=== PATIENT | female | born 1960 | race Hispanic/Latino ===

== ENCOUNTER 2022-11-12 10:52 | Outpatient (RCR) | payer OTHER | END 2022-11-17 | LOC: PT 10:52 | PROVIDERS: ATTEND Family Medicine | DX: R27.9 Unspecified lack of coordination (principal); Z91.81 History of falling ==

== ENCOUNTER 2022-11-27 08:57 | Outpatient (RCR) | payer OTHER | END 2022-12-15 | LOC: PT 08:57 | PROVIDERS: ATTEND Family Medicine | DX: M62.81 Muscle weakness (generalized) (principal); R26.81 Unsteadiness on feet; Z95.1 Presence of aortocoronary bypass graft ==

== ENCOUNTER → 2024-02-10 | Outpatient (REF) | payer OTHER | LOC: US 09:45 | PROVIDERS: ATTEND Nurse Practitioner | DX: R10.10 Upper abdominal pain, unspecified (principal); R10.30 Lower abdominal pain, unspecified | CPT/HCPCS: 76700; 76856 ==

== ENCOUNTER → 2024-05-01 | Day surgery (SDC) | payer OTHER ==
[~2024-05-01] MED LIST: AMIODARONE HCL100 MG PO; ASPIRIN81 MG PO; ATORVASTATIN CA20 MG PO; BASAGLAR K100 UNIT/1 SQ; CLOPIDOGREL75 MG PO; COLACE100 MG/10 PO; DEXMEDETOMIDINE HCL 200 MCG/2 ML VIAL ONE; DICYCLOMINE HCL20 MG PO; FENTANYL CITRATE/PF 100MCG/2 ML INJ ONE; FUROSEMIDE40 MG PO; JANUVIA50 MG PO; JARDIANCE25 MG PO; LIDOCAINE HCL 2% LOCAL INJ 5 ML SDV VIAL INJ ONE; LISINOPRIL2.5 MG PO; METOPROLOL SUCC25 MG PO; ONDANSETRON ODT4 MG SL; PROPOFOL IV EMULSION 10 MG/ML 50 ML VIAL IV ONE
[2024-05-01 12:31] LABS: BASOPHILS # (AUTO) 0.1 (0.0-0.1); BASOPHILS % 0.4 % (0.0-1.0); EOSINOPHILS # (AUTO) 0.1 (0.0-0.4); EOSINOPHILS % 0.5 % (0.0-6.0); HEMATOCRIT 44.1 % (34.2-44.1); HEMOGLOBIN 13.4 g/dL (12.0-16.0); LYMPHOCYTES # (AUTO) 2.3 (1.0-3.2); LYMPHOCYTES % 17.5 % (18.0-39.1); MEAN CORPUSCULAR HEMOGLOBIN 27.5 pg (28-32); MEAN CORPUSCULAR HGB CONC 30.4 g/dL (31-35); MEAN CORPUSCULAR VOLUME 90.4 fL (81-99); MONOCYTES # (AUTO) 0.7 (0.2-0.8); MONOCYTES % 5.2 % (4.4-11.3); NEUTROPHILS % 76.1 % (38.7-80.0); PLATELET COUNT 304 x10e3/uL (140-360); RED BLOOD COUNT 4.88 x10e6/uL (3.6-5.1); RED CELL DISTRIBUTION WIDTH 15.5 % (11.7-14.4); WHITE BLOOD COUNT 13.17 x10e3/uL (4.8-10.8)
[2024-05-01] MEDS: LACTATED RINGER'S 1,000 ML ONE (13:47)
[2024-05-01 16:45] VITALS: BP 144/70; PULSE 79; RESP 16; O2SAT 98
[2024-05-01 16:51] LABS: WBC,FECAL (FECAL LACTOFERRIN) POSITIVE (NEGATIVE)
== END | disposition home or self-care (01) ==
LOC: OR 11:28
PROVIDERS: ATTEND Internal Medicine Gastroenterology
DX: K29.70 Gastritis, unspecified, without bleeding (principal); K29.50 Unspecified chronic gastritis without bleeding; B96.81 Helicobacter pylori [H. pylori] as the cause of diseases classified elsewhere; K25.9 Gastric ulcer, unspecified as acute or chronic, without hemorrhage or perforation; K26.9 Duodenal ulcer, unspecified as acute or chronic, without hemorrhage or perforation; K63.3 Ulcer of intestine; K44.9 Diaphragmatic hernia without obstruction or gangrene; K52.9 Noninfective gastroenteritis and colitis, unspecified; D12.4 Benign neoplasm of descending colon; D12.5 Benign neoplasm of sigmoid colon; K21.00 Gastro-esophageal reflux disease with esophagitis, without bleeding; K59.00 Constipation, unspecified; K64.8 Other hemorrhoids; I11.0 Hypertensive heart disease with heart failure; I50.9 Heart failure, unspecified; I25.10 Atherosclerotic heart disease of native coronary artery without angina pectoris; I25.2 Old myocardial infarction; E78.5 Hyperlipidemia, unspecified; E11.9 Type 2 diabetes mellitus without complications; I25.810 Atherosclerosis of coronary artery bypass graft(s) without angina pectoris; Z79.4 Long term (current) use of insulin; Z79.84 Long term (current) use of oral hypoglycemic drugs; Z79.02 Long term (current) use of antithrombotics/antiplatelets; Z79.82 Long term (current) use of aspirin; Z79.899 Other long term (current) drug therapy; Z95.1 Presence of aortocoronary bypass graft
CPT/HCPCS: 36415; 43239; 45380; 45385; 83630; 83993; 85025; 87045; 87177; 87324; 87328; 87449; J2001; J2470; J2704; J3010; J7121

== ENCOUNTER 2024-05-05 15:48 | Emergency (ER) | payer OTHER ==
[~2024-05-05] VITALS: Ht 160 cm; Wt 64.0 kg
[~2024-05-05 15:48] MED LIST changes: -DEXMEDETOMIDINE HCL 200 MCG/2 ML VIAL ONE; -DICYCLOMINE HCL20 MG PO; -FENTANYL CITRATE/PF 100MCG/2 ML INJ ONE; -LIDOCAINE HCL 2% LOCAL INJ 5 ML SDV VIAL INJ ONE; -ONDANSETRON ODT4 MG SL; -PROPOFOL IV EMULSION 10 MG/ML 50 ML VIAL IV ONE
[2024-05-05 16:53] VITALS: TEMP 98.6
[2024-05-05 17:17] LABS: BASOPHILS # (AUTO) 0.1 (0.0-0.1); BASOPHILS % 0.6 % (0.0-1.0); EOSINOPHILS # (AUTO) 0.2 (0.0-0.4); EOSINOPHILS % 1.5 % (0.0-6.0); HEMATOCRIT 38.8 % (34.2-44.1); HEMOGLOBIN 11.9 g/dL (12.0-16.0); LYMPHOCYTES # (AUTO) 2.9 (1.0-3.2); LYMPHOCYTES % 21.2 % (18.0-39.1); MEAN CORPUSCULAR HEMOGLOBIN 27.4 pg (28-32); MEAN CORPUSCULAR HGB CONC 30.7 g/dL (31-35); MEAN CORPUSCULAR VOLUME 89.4 fL (81-99); MONOCYTES # (AUTO) 0.9 (0.2-0.8); MONOCYTES % 6.6 % (4.4-11.3); NEUTROPHILS # (AUTO) 9.6 (2.1-6.9); NEUTROPHILS % 69.8 % (38.7-80.0); PLATELET COUNT 344 x10e3/uL (140-360); RED BLOOD COUNT 4.34 x10e6/uL (3.6-5.1); RED CELL DISTRIBUTION WIDTH 15.5 % (11.7-14.4); WHITE BLOOD COUNT 13.67 x10e3/uL (4.8-10.8)
[2024-05-05 17:38] LABS: ALBUMIN 3.9 g/dL (3.5-5.0); BILIRUBIN,TOTAL 0.3 mg/dL (0.2-1.2); CALCIUM 9.4 mg/dL (8.4-10.2); CREATININE, SERUM 1.03 mg/dL (0.57-1.11)
[2024-05-05 18:05] LABS: BILIRUBIN,URINE NEGATIVE (NEGATIVE); CLARITY,URINE SL CLOUDY (CLEAR); COLOR,URINE YELLOW (YELLOW); GLUCOSE, URINE 500 (NEGATIVE); KETONES,URINE NEGATIVE (NEGATIVE); LEUKOCYTE ESTERASE ,URINE NEGATIVE (NEGATIVE); NITRITE,URINE NEGATIVE (NEGATIVE); PH,URINE 5.5 (5 - 7); PROTEIN,URINE DIPSTICK NEGATIVE (NEGATIVE); URINE UROBILINOGEN 0.2 mg/dL (0.2 - 1)
[2024-05-05 18:24] LABS: BACTERIA,URINE RARE /HPF; EPITHELIAL CELLS,URINE RARE /LPF; RBC,URINE 0-5 /HPF (0-5); WBC,URINE (MAN) 0-5 /HPF (0-5)
[2024-05-05] MEDS: ONDANSETRON HCL INJ 2MG/ML 2ML 2 MG/ML VIAL IV STA (19:17)
[2024-05-05] MEDS: SODIUM CHLORIDE FLUSH 10 ML SYR IV PRN (19:18)
[2024-05-05 19:45] VITALS: PULSE 68; RESP 18; O2SAT 100
[2024-05-05] MEDS ORDERED: ONDANSETRON ODT4 MG SL (20:02)
[2024-05-05] MEDS ORDERED: DICYCLOMINE HCL20 MG PO (20:02)
== END 2024-05-05 20:15 | disposition home or self-care (01) ==
LOC: ER 18:30
DX: R11.2 Nausea with vomiting, unspecified (principal); R19.7 Diarrhea, unspecified; R10.30 Lower abdominal pain, unspecified; I10 Essential (primary) hypertension; E11.65 Type 2 diabetes mellitus with hyperglycemia; E78.5 Hyperlipidemia, unspecified; Z95.1 Presence of aortocoronary bypass graft
CPT/HCPCS: 36415; 74176; 80053; 81001; 83690; 85025; 99284; J2405; J2470

== ENCOUNTER → 2024-09-25 | Outpatient (REF) | payer OTHER ==
[~2024-09-25] MED LIST changes: +DEGLUDEC SC; +DICYCLOMINE HCL20 MG PO; +ONDANSETRON ODT4 MG SL
== END ==
LOC: US 12:11
PROVIDERS: ATTEND Nurse Practitioner
DX: R10.10 Upper abdominal pain, unspecified (principal)
CPT/HCPCS: 76700